=== PATIENT | female | born 1985 | race Asian ===

== ENCOUNTER → 2018-03-18 14:15 | Outpatient (CLI) | payer OTHER, SELFPAY ==
[2018-03-22 11:31] LABS: HPV Reflexed? NOT INDICATED
--- OUTSIDE RECORDS SUMMARY | 2018-05-23 11:18 | XMS RPT_ITS ---
:1985 Author Organization [facility] Care Team Providers Name Role Phone Carmen Thacker Attending Unavailable PROBLEMS PROBLEMS DATE TYPE CONDITION / CODE ATTENDING STATUS SOURCE 03/18/2018 Unknown Z12.4 - Carmen Thacker Active [place] Encounter for Community screening for Hospital malignant Repository neoplasm of cervix / Z12.4(ICD-10) PROCEDURES PROCEDURES No Procedure Records FoundRESULTS RESULTS PAP I-G W/RFX HRHPV Collected: 03/18/2018 Status: F Source: ANAT 9:30 AM FOR[facility]LY [facility] REPOSITORY Order Comment: CYTOLOGY INFORMATION: - CLINICAL INFORMATION: - DATE LMP/MENOPAUSE: NO LMP GIVEN LMP - COLLECTION VIAL: Thin Prep Vial - BIT TAPPER SOURCE: CERVICAL/ENDOCERVICAL - COLLECTION TECHNIQUE: BRUSH/SPATULA Specimen Comment: [id number] Specimen Comment: Source.............Cervix;Endocervix Specimen Comment: No. of containers..01 ThinPrep Vial TYPE CODE TESTS RESULT OUT OF RANGE REFERENCE UNITS LAB L7400.0800 . Normal DIAGN Comment Result Comment: NEGATIVE FOR INTRAEPITHELIAL LESION OR MALIGNANCY. CELLULAR CHANGES ASSOCIATED WITH INFLAMMATION ARE PRESENT. LAB L7400.0900 . Normal ADEQ Comment Result Comment: Satisfactory for evaluation. No endocervical component is identified. LAB L7400.1400 . Normal PERFORM Comment Result Comment: Imani Carrillo, Rack Loader (ASCP) LAB L7400.2575 . Normal TEST METHOD Comment Result Comment: This liquid based ThinPrep(R) pap test was screened with the use of an image guided system. LAB L7400.2600 . Normal . COMM LAB L7400.2700 . Normal PAPSMR Comment Result Comment: The Pap smear is a screening test designed to aid in the detection of premalignant and malignant conditions of the uterine cervix. It is not a diagnostic procedure and should not be used as the sole means of detecting cervical cancer. Both false-positive and false-negative reports do occur. LAB L7400.2800 . Normal HPV RFLX Comment Result Comment: The HPV DNA reflex criteria were not met with this specimen result therefore, no HPV testing was performed. Performed at: - [facility] [id number] [place]: Emmy Harper MD, Phone: [phone] Performed By: #### L7400.0350 #### [facility] (refer to report for specific site) refer to report for address and phone number ALLERGIES ALLERGIES No Allergies Records FoundENCOUNTERS ENCOUNTERS ADMIT/DISCHARGE ACCOUNT ADMITTING ENCOUNTER LOCATION SOURCE NUMBER CLASS 03/18/2018 [id number] Ambulatory [address] ing:[facility] Repository PAYERS PAYERS ENCOUNTER GUARANTOR PAYER SUBSCRIBER SOURCE 03/18/2018 Wil[address] Espino[address] [place] [facility]:MEDICAL [id number] [facility] [address]Noe: [facility] Number: Repository () [id number] Date:[id number] [address] [place], [place] [address]WP: 03/18/2018 [facility]LF [facility] Number: Effective Repository Date:2018-03-18
== END ==
PROVIDERS: Visit Provider Obstetrics & Gynecology
DX: Z12.4 Encounter for screening for malignant neoplasm of cervix (principal)
CPT/HCPCS: 88175; G0145

== ENCOUNTER → 2019-04-08 | Outpatient (CLI) | payer OTHER, SELFPAY | END | disposition home or self-care (01) | LOC: LABSPEC 12:53 | PROVIDERS: Referring Provider Obstetrics & Gynecology; Visit Provider Obstetrics & Gynecology | DX: Z12.4 Encounter for screening for malignant neoplasm of cervix (principal); Z11.3 Encounter for screening for infections with a predominantly sexual mode of transmission ==